=== PATIENT | male | born 2000 | race Asian ===

== ENCOUNTER 2020-08-12 08:01 | Outpatient (RCR) | payer OTHER, SELFPAY | END 2020-09-28 23:59 | LOC: IMMUN 08:01 | PROVIDERS: PCP Pediatrics; Referring Provider Family Medicine; Visit Provider Family Medicine | DX: Z23 Encounter for immunization (principal) | CPT/HCPCS: 0001A; 0002A; 91300 ==

== ENCOUNTER → 2021-03-28 13:51 | Outpatient (CLI) | payer OTHER, SELFPAY | PROVIDERS: PCP Pediatrics; Visit Provider Family Medicine | DX: Z23 Encounter for immunization (principal) ==